=== PATIENT | female | born 1960 ===

== ENCOUNTER 2019-07-02 09:00 | Inpatient (IN) | payer OTHER ==
[~2019-07-02] VITALS: Ht 157.5 cm; Wt 50.8 kg
[2019-07-02] MEDS ORDERED: NAPROXEN500 MG (11:03)
[2019-07-02] MEDS ORDERED: HYDROCHLOROTHIA25 MG (11:03)
[2019-07-02] MEDS ORDERED: LEVOTHYROXINE25 MCG (11:03)
[2019-07-02] MEDS ORDERED: ATIVAN0.5 M1 (11:04)
[2019-07-02] MEDS ORDERED: SERTRALINE HCL50 MG (11:04)
== END 2019-07-09 10:09 | disposition home or self-care (01) | DRG 741 ==
LOC: O/R 09:00 → OB/GYN 07-06 06:33 → O/R 07-06 06:33 → OB/GYN 07-06 09:00
PROVIDERS: ADMIT Obstetrics & Gynecology Gynecologic Oncology
PROC: 0UT70ZZ Resection of Bilateral Fallopian Tubes, Open Approach (ICD-10-PCS; 2019-07-06)
PROC: 0UT20ZZ Resection of Bilateral Ovaries, Open Approach (ICD-10-PCS; 2019-07-06)
PROC: 07BC0ZZ Excision of Pelvis Lymphatic, Open Approach (ICD-10-PCS; 2019-07-06)
PROC: 0UT90ZZ Resection of Uterus, Open Approach (ICD-10-PCS; principal; 2019-07-06 10:15)
DX: C53.1 Malignant neoplasm of exocervix (principal); E03.8 Other specified hypothyroidism; I10 Essential (primary) hypertension; D26.1 Other benign neoplasm of corpus uteri; N72 Inflammatory disease of cervix uteri; N80.0 Endometriosis of uterus